=== PATIENT | male | born 1995 | race American Indian/Alaskan Native ===

== ENCOUNTER 2018-06-07 23:57 | Emergency (ER) | payer BC ==
[2018-06-07 23:57] VITALS: BMI 31.5
[2018-06-08] VITALS: RESP 18
[2018-06-08] MEDS ORDERED: Naproxen 500 MG TAB PO ONE ×2 (00:56→00:59)
--- NOTE | 2018-06-08 00:59 | ED PDOC ---
HPI: Dental Pain/Injury Time Seen by Provider: 06/08/18 00:40 Chief Complaint (Nursing): Dental Pain Chief Complaint (Provider): toothache History Per: Patient History/Exam Limitations: no limitations Onset/Duration Of Symptoms: Days (4), Waxing/Waning Current Symptoms Are (Timing): Still Present Additional Complaint(s): 22 y/o male presents for evaluation of left lower tooth pain x 4 days. Denies fever, difficulty speaking/swallowing, facial pain/swelling. No medication taken for relief thus far Past Medical History Reviewed: Historical Data, Nursing Documentation, Vital Signs Vital Signs: Last Vital Signs Temp 98.7 F 06/07/18 23:59 Pulse 64 06/07/18 23:59 Resp 18 06/07/18 23:59 BP 161/96 H 06/07/18 23:59 Pulse Ox 99 06/07/18 23:59 - Medical History PMH: Asthma, Fractures (Left wrist Fx 8 years ago.) Denies: Depression, Diabetes, Hepatitis, HIV, HTN, Chronic Kidney Disease, Seizures, Sexually Transmitted Disease - Surgical History Surgical History: No Surg Hx - Family History Family History: States: No Known Family Hx - Living Arrangements Living Arrangements: With Family - Immunization History Hx Tetanus Toxoid Vaccination: No Hx Influenza Vaccination: No Hx Pneumococcal Vaccination: No - Home Medications Home Medications: Ambulatory Orders Medication Instructions Recorded Amoxicillin 500 mg PO TID #20 tablet 06/08/18 Naproxen [Naprosyn] 500 mg PO Q12 PRN #20 tablet 06/08/18 - Allergies Allergies/Adverse Reactions: Allergies Allergy/AdvReac Type Severity Reaction Status Date / Time shellfish derived Allergy SWELLING Verified 05/21/18 02:44 Review of Systems ROS Statement: Except As Marked, All Systems Reviewed And Found Negative ENT: Positive for: Mouth Pain Physical Exam - Reviewed Nursing Documentation Reviewed: Yes Vital Signs Reviewed: Yes - Physical Exam Appears: Positive for: Well, Non-toxic, No Acute Distress Head Exam: Positive for: ATRAUMATIC, NORMAL INSPECTION, NORMOCEPHALIC Skin: Positive for: Normal Color Eye Exam: Positive for: Normal appearance ENT: Positive for: Other (tender to palpate left lower 2nd molar; no surrounding gingival tenderness, erythema, edema or abscess noted. No facial edema/erythema noted) - ECG O2 Sat by Pulse Oximetry: 99 - Progress ED Course And Treament: Patient educated on findings, discharged with rx Naproxen, Amoxicillin (doses given in ED) Advised follow up with Dentist within 2-3 days Return precautions given Disposition - Clinical Impression Clinical Impression: Toothache - Patient ED Disposition Is Patient to be Admitted: No Counseled Patient/Family Regarding: Diagnosis, Need For Followup, Rx Given - Disposition Disposition: Routine/Home Disposition Time: 01:03 Condition: IMPROVED Prescriptions: Amoxicillin 500 mg PO TID #20 tablet Naproxen [Naprosyn] 500 mg PO Q12 PRN #20 tablet PRN Reason: Pain, Moderate (4-7) Instructions: Dental Pain
[2018-06-08 01:53] VITALS: BP 145/88; PULSE 66; TEMP 98.5; O2SAT 98
== END 2018-06-08 01:10 | disposition home or self-care (01) ==
LOC: H.ER 23:57
DX: K08.89 Other specified disorders of teeth and supporting structures (principal)

== ENCOUNTER 2018-06-13 14:42 | Emergency (ER) | payer BC ==
[2018-06-13 14:42] VITALS: BMI 31.5
[2018-06-13 15:07] VITALS: RESP 18; O2SAT 98
[2018-06-13] MEDS ORDERED: Amoxicillin-Clav 875-125 mg Tab PO STA (15:16)
[2018-06-13] MEDS ORDERED: Amoxicillin-Clav 875-125 mg Tab PO ONE (15:22)
--- NOTE | 2018-06-13 15:47 | ED PDOC ---
HPI: Dental Pain/Injury Time Seen by Provider: 06/13/18 15:08 Chief Complaint (Nursing): Dental Pain Chief Complaint (Provider): Dental Pain History Per: Patient History/Exam Limitations: no limitations Onset/Duration Of Symptoms: Days (x 2 weeks) Current Symptoms Are (Timing): Still Present Quality: "Pain", Other (throbbing) Additional Complaint(s): 22 year old male presents to the ED with a worsening, throbbing left lower toothache for the last 2 1/2 weeks. He has not had any recent dental work or examinations. Patient did not take medications for the pain. Offers no other complaints and denies fever. PMD: Dr. Mendez Past Medical History Reviewed: Historical Data, Nursing Documentation, Vital Signs Vital Signs: Last Vital Signs Temp 98.6 F 06/13/18 15:05 Pulse 64 06/13/18 15:05 Resp 18 06/13/18 15:05 BP 132/78 06/13/18 15:05 Pulse Ox 98 06/13/18 15:05 - Medical History PMH: Asthma, Fractures (Left wrist Fx 8 years ago.) - Surgical History Surgical History: No Surg Hx - Family History Family History: States: Unknown Family Hx - Social History Current smoker - smoking cessation education provided: Yes SMOKER/PACKS PER DAY:: 1 Alcohol: None Drugs: Denies - Home Medications Home Medications: Ambulatory Orders Medication Instructions Recorded RX: Amoxicillin 500 mg PO TID #20 tablet 06/08/18 RX: Naproxen [Naprosyn] 500 mg PO Q12 PRN #20 tablet 06/08/18 Acetaminophen [Acetaminophen 8 650 mg PO Q8 PRN #21 tablet.er 06/13/18 Hour] Amoxicillin/Clavulanate [Augmentin 1 tab PO BID #14 tab 06/13/18 875 MG-125 MG] RX: Ibuprofen [Motrin Tab] 800 mg PO Q8 PRN #21 tab 06/13/18 - Allergies Allergies/Adverse Reactions: Allergies Allergy/AdvReac Type Severity Reaction Status Date / Time shellfish derived Allergy SWELLING Verified 05/21/18 02:44 Review of Systems ROS Statement: Except As Marked, All Systems Reviewed And Found Negative Constitutional: Negative for: Fever ENT: Positive for: Other (left lower toothache) Physical Exam - Reviewed Nursing Documentation Reviewed: Yes Vital Signs Reviewed: Yes - Physical Exam Comments: GENERAL APPEARANCE: Patient is awake, alert, oriented x 3; resting comfortably, on cell phone, in no acute distress. SKIN: Warm, dry; (-) cyanosis. NECK: Supple, FROM (-) tenderness, (-) lymphadenopathy ENMT: Metal retainer in place to lower dentition. (+) 2 fillings to posterior left molars. Poor dentition throughout. (+)tenderness to percussion of left posterior two molars. (-) gingival swelling, (-) fluctuance. (-) sinus swelling or tenderness. Pharynx: clear, uvula midline (-) erythema (-) tongue elevation, (-) exudate. Airway patent: (-) stridor. (-) Submandibular or submental neck swelling (-) pseudomembranes RESPIRATORY: lungs clear to auscultation bilaterally, respirations even and nonlabored. CARDIAC: (-) irregularity - ECG O2 Sat by Pulse Oximetry: 98 (RA) Pulse Ox Interpretation: Normal Medical Decision Making Medical Decision Makin:15 Clinical impression: toothache; probable dental infection Initial Plan: --Augmentin 1 tab PO --Motrin 600 mg PO --Re-evaluation 1545 On re-evaluation, patient reports improvement of symptoms. On exam, patient remains AAOx3, in no acute distress. Vitals stable. Lab/Diagnostic results d/w the patient in great detail. Diagnosis of toothache, probable dental infection d/w the patient. Based on history, exam and diagnostic results, plan will be for outpatient follow up with dental. Patient instructed to follow-up with pmd / referral provided / the clinic in 1- 2 days without fail. Advised to take medication as prescribed. Return to the emergency room at any time for any new or worsening symptoms. Patient states he fully agrees with and understands discharge instructions. States that he agrees with the plan and disposition. Verbalized and repeated discharge instructions and plan. I have given the patient opportunity to ask any additional questions. Scribe Attestation: Documented by Zaynab Edwards, acting as a scribe for Tammi Evans PA-C Provider Scribe Attestation: All medical record entries made by the Scribe were at my direction and personally dictated by me. I have reviewed the chart and agree that the record accurately reflects my personal performance of the history, physical exam, medical decision making, and the department course for this patient. I have also personally directed, reviewed, and agree with the discharge instructions and disposition. Disposition - Clinical Impression Clinical Impression: Toothache, Dental infection - Patient ED Disposition Is Patient to be Admitted: No Counseled Patient/Family Regarding: Studies Performed, Diagnosis, Need For Followup, Rx Given, Smoking Cessation - Disposition Referrals: primary, doctor [Other] your, dentist [Other] Disposition: Routine/Home Disposition Time: 15:45 Condition: STABLE Additional Instructions: FOLLOW UP WITH DENTAL IN 1-2 DAYS FOR FURTHER EVALUATION. The emergency medical care you received today was directed at your acute symptoms. If you were prescribed any medication, please fill it and take as directed. It may take several days for your symptoms to resolve. Return to the Emergency Department if your symptoms worsen, do not improve, or if you have any other problems. Please contact your doctor in 2 days for re-evaluation and follow up / or call one of the physicians/clinics you have been referred to that are listed on the Patient Visit Information form that is included in your discharge packet. Bring any paperwork you were given at discharge with you along with any medications you are taking to your follow up visit. Our treatment cannot replace ongoing medical care by a primary care provider (PCP) outside of the emergency department. Prescriptions: Acetaminophen [Acetaminophen 8 Hour] 650 mg PO Q8 PRN #21 tablet.er PRN Reason: Pain, Moderate (4-7) Amoxicillin/Clavulanate [Augmentin 875 MG-125 MG] 1 tab PO BID #14 tab RX: Ibuprofen [Motrin Tab] 800 mg PO Q8 PRN #21 tab PRN Reason: Pain, Moderate (4-7) Instructions: Dental Pain (DC) Forms: [employer] (Micronesian) Print Language: SAMI - POA Present On Arrival: None
[2018-06-13 15:53] VITALS: BP 115/77; PULSE 80; TEMP 98.3
== END 2018-06-13 15:59 | disposition home or self-care (01) ==
LOC: H.ER 14:42
DX: K08.89 Other specified disorders of teeth and supporting structures (principal); K04.7 Periapical abscess without sinus; F17.210 Nicotine dependence, cigarettes, uncomplicated; J45.909 Unspecified asthma, uncomplicated